=== PATIENT | male | born 1980 ===

== ENCOUNTER 2017-10-12 10:35 | Outpatient (CLI) | payer OTHER ==
[~2017-10-12 10:35] MED LIST: KETO10TA2 PO; TAMS0.4C PO
== END 2017-10-12 11:54 | disposition home or self-care (01) ==
LOC: RX STUDY 10:35
DX: E66.01 Morbid (severe) obesity due to excess calories (principal); Z98.84 Bariatric surgery status

== ENCOUNTER 2017-12-04 09:28 | Outpatient (CLI) | payer OTHER | END 2017-12-04 09:39 | disposition home or self-care (01) | LOC: RX STUDY 09:28 | DX: I10 Essential (primary) hypertension (principal); E66.01 Morbid (severe) obesity due to excess calories ==

== ENCOUNTER 2018-04-18 07:00 | Day surgery (SDC) | payer OTHER ==
[~2018-04-18] VITALS: Ht 180.3 cm; Wt 91.6 kg
== END 2018-04-19 08:00 | disposition home or self-care (01) ==
LOC: CIR.AMB 07:00 → EDSTATUS 12:00 → SURH 12:00 → O/R 15:56 → SURG 15:56 → SURH 17:00 → SURG 17:00 → SURH 17:00 → CIR.AMB 04-19 08:00 → SURG 04-19 12:32 → SURH 04-19 12:32 → O/R 04-19 12:32
DX: E65 Localized adiposity (principal)

== ENCOUNTER 2018-05-01 14:30 | Emergency (ER) | payer OTHER ==
[~2018-05-01] VITALS: Ht 182.9 cm; Wt 86.2 kg
== END 2018-05-02 09:49 | disposition home or self-care (01) ==
LOC: ER 14:30
DX: J18.9 Pneumonia, unspecified organism (principal); R60.0 Localized edema